=== PATIENT | female | born 1975 | race Caucasian/White ===

== ENCOUNTER → 2019-02-18 13:46 | Outpatient (BNVA) | payer MEDICAID, SELFPAY | PROVIDERS: Family Provider Family Medicine; PCP Family Medicine; Visit Provider Social Worker | DX: F43.12 Post-traumatic stress disorder, chronic (principal); F33.2 Major depressive disorder, recurrent severe without psychotic features; F41.1 Generalized anxiety disorder | CPT/HCPCS: 90834 ==

== ENCOUNTER → 2019-02-25 09:07 | Outpatient (BNVA) | payer MEDICAID, SELFPAY | PROVIDERS: Family Provider Family Medicine; PCP Family Medicine; Visit Provider Nurse Practitioner | DX: F33.1 Major depressive disorder, recurrent, moderate (principal); F41.1 Generalized anxiety disorder; F43.12 Post-traumatic stress disorder, chronic | CPT/HCPCS: 99214; 99215 ==

== ENCOUNTER → 2019-03-17 09:34 | Outpatient (BNVA) | payer OTHER, SELFPAY | PROVIDERS: Family Provider Family Medicine; PCP Family Medicine; Visit Provider Nurse Practitioner | DX: F43.12 Post-traumatic stress disorder, chronic (principal) | CPT/HCPCS: 80061; 83036 ==

== ENCOUNTER → 2019-03-18 08:47 | Outpatient (BNVA) | payer MEDICAID, SELFPAY | PROVIDERS: Family Provider Family Medicine; PCP Family Medicine; Visit Provider Social Worker | DX: F43.12 Post-traumatic stress disorder, chronic (principal); F33.2 Major depressive disorder, recurrent severe without psychotic features; F41.1 Generalized anxiety disorder | CPT/HCPCS: 90834 ==

== ENCOUNTER → 2019-04-01 08:51 | Outpatient (BNVA) | payer MEDICAID, SELFPAY | PROVIDERS: Family Provider Family Medicine; PCP Family Medicine; Visit Provider Social Worker | DX: F43.12 Post-traumatic stress disorder, chronic (principal); F33.2 Major depressive disorder, recurrent severe without psychotic features; F41.1 Generalized anxiety disorder | CPT/HCPCS: 90834 ==

== ENCOUNTER 2019-04-24 08:56 | Outpatient (CLI) | payer MEDICAID, SELFPAY ==
[2019-03-19 10:58] VITALS: BP 115/70; BMI 34.9
--- NOTE | 2019-04-24 09:30 | USCV_ITS ---
George Yun Age: 44 Gender: F : 1975 Exam Date: 04/24/2019 09:35 Ordering Phys: Shakira Vallejo DO Technologist: Mikael Leach [place] [facility] [place]: HISTORY: Edema. PROCEDURES: Right duplex Venous Insufficiency study of the Deep and Superficial systems was carried out according to normal protocol with the patient in supine positon for deep system and dependent position for the superficial system. FINDINGS: All deep veins demonstrated compressibility without evidence of intraluminal thrombus or increased echogenicity. Spectral analysis of Doppler signals demonstrates normal response to compression maneuvers indicating patency without obstruction. Reflux determinations were made with the patient in the dependent position, the weight being on the contralateral leg. Vein measurements and reflux times are listed below were applicable. SIGNIFICANT REFLUX IN THE RT GSAPH BELOW THE KNEE THE GSAPH HAS A SMALL DIAMETER CONCLUSIONS No evidence of DVT in the above-mentioned identifiable veins. Significant venous reflux of greater than 500 ms was noted at the below knee segment of the greater saphenous vein on the right side. The vein was relatively small caliber , greater than 1 cm deep from the surface. The venous dimensions, depth from the surface and the reflux time are as mentioned above Dr Dale Ross MD [facility] (Electronically Signed) Final Date: 27 April 2019 09:11 S
== END 2019-04-24 08:57 | disposition home or self-care (01) ==
LOC: US 09:00
PROVIDERS: Family Provider Family Medicine; PCP Family Medicine; Visit Provider Family Medicine
DX: I83.811 Varicose veins of right lower extremity with pain (principal); M79.604 Pain in right leg
CPT/HCPCS: 93971

== ENCOUNTER → 2019-04-29 09:32 | Outpatient (BNVA) | payer MEDICAID, SELFPAY | PROVIDERS: Family Provider Family Medicine; PCP Family Medicine; Visit Provider Family Medicine | DX: Z13.6 Encounter for screening for cardiovascular disorders (principal); Z86.39 Personal history of other endocrine, nutritional and metabolic disease | CPT/HCPCS: 80053; 82306; 85025 ==

== ENCOUNTER → 2019-05-13 07:36 | Outpatient (BNVA) | payer MEDICAID, SELFPAY | PROVIDERS: Family Provider Family Medicine; PCP Family Medicine; Visit Provider Nurse Practitioner | DX: F43.12 Post-traumatic stress disorder, chronic (principal); F41.1 Generalized anxiety disorder; F33.1 Major depressive disorder, recurrent, moderate | CPT/HCPCS: 99213 ==

== ENCOUNTER → 2019-05-20 13:47 | Outpatient (BNVA) | payer MEDICAID, SELFPAY | PROVIDERS: Family Provider Family Medicine; PCP Family Medicine; Visit Provider Social Worker | DX: F33.1 Major depressive disorder, recurrent, moderate (principal); F41.1 Generalized anxiety disorder; F43.12 Post-traumatic stress disorder, chronic | CPT/HCPCS: 90832 ==

== ENCOUNTER → 2019-06-25 09:21 | Outpatient (BNVA) | payer MEDICAID, SELFPAY ==
[2019-03-19 10:58] VITALS: BP 115/70; BMI 34.9
== END ==
PROVIDERS: Family Provider Family Medicine; Visit Provider Social Worker
DX: F41.1 Generalized anxiety disorder (principal); F33.1 Major depressive disorder, recurrent, moderate; F43.12 Post-traumatic stress disorder, chronic
CPT/HCPCS: 90834

== ENCOUNTER → 2019-07-15 08:05 | Outpatient (BNVA) | payer MEDICAID, SELFPAY ==
[2019-03-19 10:58] VITALS: BP 115/70; BMI 34.9
== END ==
PROVIDERS: Family Provider Family Medicine; Visit Provider Social Worker
DX: F43.12 Post-traumatic stress disorder, chronic (principal); F41.1 Generalized anxiety disorder; F33.1 Major depressive disorder, recurrent, moderate
CPT/HCPCS: 90834

== ENCOUNTER → 2019-07-21 08:56 | Outpatient (BNVA) | payer MEDICAID, SELFPAY ==
[2019-07-21 08:51] VITALS: BP 115/70; BMI 34.9
== END ==
PROVIDERS: Family Provider Family Medicine; Visit Provider Family Medicine
DX: E55.9 Vitamin D deficiency, unspecified (principal)
CPT/HCPCS: 82306

== ENCOUNTER → 2019-07-30 10:51 | Outpatient (BNVA) | payer MEDICAID, SELFPAY ==
[2019-07-21 08:51] VITALS: BP 115/70; BMI 34.9
== END ==
PROVIDERS: Family Provider Family Medicine; PCP Family Medicine; Visit Provider Internal Medicine Cardiovascular Disease
DX: I83.811 Varicose veins of right lower extremity with pain (principal)
CPT/HCPCS: 80048; 85025

== ENCOUNTER 2019-08-06 08:32 | Outpatient (CLI) | payer MEDICAID, SELFPAY ==
[2019-08-04 06:52] LABS: Quest SARS-CoV-2 RNA NOT DETECTED (NOT DETECTED)
[2019-08-04 08:14] VITALS: BP 115/70; BMI 34.9
[2019-08-06 09:18] VITALS: BP 113/64; PULSE 85; RESP 18; TEMP 36.9; O2SAT 99; BMI 34.5
--- NOTE | 2019-08-06 09:21 | SUR.PREOP ---
Patient prepped to procedure. Dr Neves in a Peripheral since 829. Patient aware of her [address] that [address] Neves is in a procedure at this time. She verb understanding. Call light given. Informed to call for needs.
--- NOTE | 2019-08-06 09:25 | SUR.PREOP ---
ALLERGY TO NOVOCAIN Discussed the allergy to Novocain with the patient. She is aware that the medications to be given today contains Lidocain. She tells me that novocain she cannot take, but she has received Lidocain in the past with no adverse reaction. Will discuss with Dr Neves once he arrives for today's procedure.
--- NOTE | 2019-08-06 10:39 | W.PM.OPSUD ---
Surgery/Procedure H&P Update DATE OF PROCEDURE: August 06, 2019 DATE H&P PERFORMED: 08/06/19 H&P UPDATE INFORMATION: I have examined patient prior to procedure and No changes to prior documentation PREOP DIAGNOSIS: Varicose vein with significant reflux, failed conservative management PLANNED PROCEDURE: Operation Date: 08/06/19 10:00 Proposed Procedures p Venous Ablations(Right) - Ajay Neves MD PATIENT REASSESSED PRIOR TO SEDATION, WITH NO CHANGE NOTED: Yes PHYSICAL EXAM: alert, oriented x 3, clear to auscultation bilaterally and regular rate & rhythm AIRWAY EVAL/ANESTHESIA PLAN: ASA II
--- NOTE | 2019-08-06 10:40 | PM.HP ---
Providers/Chief Complaint Primary Care Provider: Shakira Vallejo DO Chief Complaint: . History of Present Illness Yun Vazquez is a 44 year old female Reason for consultation: Symptomatic varicose vein and intolerant to Compression stockings.patient has tried and failed for more than 4 months. Patient has significant symptomatic varicose vein she reports fatigue swelling and difficulty in walking and cramps in the night. She has failed conservative management including leg raising compression stockings which she was somehow intolerant as well but tried for the last 4 months. Today she is here for right great saphenous vein ablation.. She underwent reflux study which showed more than 500 ms venous reflux, veins were small caliber and 1 cm deep no deep vein reflux of thromboses noted. Patient denies history of diabetes smoking but has history of prolonged sitting and standing hours and history of headache 3 problem with varicose veins. She thinks veins are bothering her too much she can walk much longer and she has cramps pain at rest as well. Medications/Allergies Home Medications Medication Instructions Recorded Confirmed Last Taken Type citalopram 40 mg tablet 40 mg PO DAILY #30 tab 02/25/19 08/06/19 08/05/19 20:00 Rx coenzyme Q10 10 mg capsule 10 mg PO DAILY cap 02/25/19 08/06/19 08/05/19 20:00 History erenumab-aooe 70 mg/mL 70 mg SUBCUT .monthly each 02/25/19 08/06/19 08/06/19 08:00 History subcutaneous auto-injector ginkgo biloba extract-Panax 1 cap PO DAILY cap 02/25/19 08/06/19 08/06/19 08:00 History ginseng root extract 60 mg-100 mg capsule magnesium oxide 500 mg capsule 500 mg PO BID 02/25/19 08/06/19 08/05/19 20:00 History milnacipran 100 mg tablet 100 mg PO BID 02/25/19 08/06/19 08/05/19 20:00 History tizanidine 4 mg capsule 12 mg PO DAILY cap 02/25/19 08/06/19 08/05/19 20:00 History topiramate 100 mg tablet 100 mg PO BID 02/25/19 08/06/19 08/05/19 20:00 History vitamin B complex 1 tab PO QAM 02/25/19 08/06/19 08/06/19 08:00 History amlodipine 5 mg tablet 5 mg PO .qpm tab 03/25/19 08/06/19 08/05/19 20:00 History comp.stocking,knee,long,medium #12 each 03/25/19 08/06/19 Unknown Rx dicyclomine 20 mg tablet 20 mg PO QID PRN tab 03/25/19 08/06/19 08/05/19 20:00 History prazosin 1 mg capsule 1 mg PO DAILY #30 cap 06/01/19 08/06/19 08/05/19 20:00 Rx naltrexone 50 mg tablet 12.5 mg PO DAILY tab 07/02/19 08/06/19 08/05/19 20:00 History rizatriptan 10 mg tablet 10 mg PO Q2H PRN 07/02/19 08/06/19 08/05/19 20:00 History ergocalciferol (vitamin D2) See Rx Instructions .ROUTE .COMPLEX 08/06/19 08/06/19 08/06/19 08:00 History [Vitamin D2] lactulose 20 g PO BID 08/06/19 08/06/19 08/05/19 20:00 History Allergies Allergy/AdvReac Type Severity Reaction Status Date / Time procaine [From Novocain] Allergy Unknown Unknown Verified 08/06/19 09:24 Bleach (Sodium Hypochlorite) Allergy Unknown Verified 08/06/19 08:59 cephalexin [From Keflex] Allergy Unknown Verified 08/06/19 08:59 gabapentin Allergy Unknown Verified 08/06/19 08:59 Penicillins Allergy Unknown Verified 08/06/19 08:59 PFSH Acute PFSH: Medical History Carpal tunnel syndrome Chronic migraine Fibromyalgia Foot drop, right foot Generalized anxiety disorder Major depressive disorder, recurrent, moderate Peripheral neuropathy Post-traumatic stress disorder, chronic Raynauds disease Tarsal tunnel syndrome Surgical History History of back surgery History of surgery on left wrist Hx of section Hx of cholecystectomy Hx of dilation and curettage Hx of hysterectomy Hx of laparoscopy Hx of right knee surgery Hx of shoulder surgery Hx of tonsillectomy Family History Father Hyperlipidemia Hypertension Cancer skin cancer Mother Hypertension Grandmother Hypertension Social History Smoking and tobacco status: never smoked Second hand smoke exposure: No Alcohol intake: current Alcohol intake frequency: holidays/special occasions only Desire information about alcohol rehabilitation?: No Counseling given: No Lives independently: Yes Marital status: Single Current gender identity: Female Vitals/I&O/Wt Last Vital Signs Temp 98.5 F 08/06/19 09:18 Pulse 85 08/06/19 09:18 Resp 18 08/06/19 09:18 BP 113/64 08/06/19 09:18 Pulse Ox 99 08/06/19 09:18 Weight last 48 hrs Weight 195 lb Physical Exam Narrative: EXAM NARRATIVE: GENERAL: Patient is alert, awake and oriented x3. NECK: No jugular vein distension. HEENT: No cyanosis. No icterus. No pallor. HEART: Regular S1 and S2. No murmur, rub or gallop. LUNGS: Clear to auscultate bilaterally. ABDOMEN: Soft, nontender and nondistended. Positive bowel sounds. No guarding, rebound or tenderness. CENTRAL NERVOUS SYSTEM: Grossly nonfocal. EXTREMITIES: Lower extremities with 1+ edema bilaterally. Obvious varicose vein of the right leg more prominent. Const: COMMON NORMALS: alert Resp: COMMON NORMALS: clear to auscultation bilaterally AUSCULTATION: clear to auscultation bilaterally Neuro: SENSORIUM/ORIENTATION: Yes alert A&P Assessment and plan (1) Varicose veins of lower extremity: Today patient is here for right great saphenous vein ablation. She has failed conservative management seep classification is C4a, patient has been explained all risk benefit alternative for the procedure. She has been explained the risk of developing venous thrombosis leading to pulmonary embolism . She has been explained in case of venous thrombosis extending beyond the saphenofemoral junction we may can start her on anticoagulation and in worse case scenario she may will be requiring IVC filter. Patient agrees to it and would like to proceed with it. Status: Acute Qualifiers: Varicose vein complication: pain Laterality: right Qualified Code(s): I83.811 - Varicose veins of right lower extremity with pain Attestations Medical Necessity Statement*: I am not expecting her stay to cross more than few hours. 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
--- NOTE | 2019-08-06 11:24 | P.PCN_ITS ---
Procedure Note: Date of procedure: 08/06/19 Pre-procedure diagnosis: Varicose vein symptomatic Procedure: The insufficient right great saphenous vein verified by ultrasound and diagrammed on the overlying skin. The varicose tributary veins and suitable access sites were identified and mapped. The affected area prepped and draped in the usual sterile fashion. The patient was placed in reverse Trendelenburg position. Tumescent was instilled in the skin overlying the access site for local anesthesia. The vein was accessed PROXIMAL, MID, DISTAL - THIGH/CALF using ultrasound guidance and the Seldinger technique, a guidewire was introduced through the needle, which was then exchanged over the guidewire for a 7F sheath. The RF catheter was placed on the sterile field, flushed and wiped down, prepared, and connected by a sterile cable. The patient was placed in Trendelenburg position. After RF catheter position was verified by ultrasound, tumescent anesthesia was infiltrated, under ultrasound guidance, precisely into the perivenous compartment along the entire length of vein. After the RF catheter position was again confirmed with ultrasound imaging, and under direct external compression along the length of the heating element, RF energy was applied. The vein was segmentally ablated until the treatment length is completed. Device temperature was maintained at 120 +/- degrees C with an initial power level of 40W dropping to below 20W for each treatment. Total vein length treated 47 cm. Vein diameter 1 cm. Total cycles of RF 10. Time 3 minutes and 20 seconds. Repeat ultrasound of the right great saphenous vein was performed, confirming successful treatment. The catheter and sheath were withdrawn and hemostasis established with direct pressure. After assuring hemostasis, the skin incision over the saphenous vein was closed with a bandage and graduated compression stocking was applied from the level of the foot to the most proximal length of the thigh. Tumescent used 300 mL Normal saline waste 225 mL Lidocaine waste 10 mL Estimated blood loss (mL): 2 Pathology: none sent Condition: stable Disposition: PACU Coding Level of Care Code Acute Biosolids Management Technician for Tylor Kramer
[2019-08-06 11:45] VITALS: BP 118/62; PULSE 85; RESP 17; TEMP 37.1; O2SAT 97
--- NOTE | 2019-08-06 12:29 | SUR.PHASEII ---
DISCHARGE NOTE Patient given verbal and written discharge instructions as ordered. See discharge plan. Discharged in stable condition. No pain reported. Encouraged to walk post procedure. New script given for new compression stocking as ordered by .
== END 2019-08-06 12:15 | disposition home or self-care (01) ==
PROVIDERS: Family Provider Family Medicine; PCP Family Medicine; Visit Provider Internal Medicine Cardiovascular Disease
DX: I83.811 Varicose veins of right lower extremity with pain (principal); M79.7 Fibromyalgia; F41.9 Anxiety disorder, unspecified
CPT/HCPCS: 12345; 36475; 87635; C1769; C1888; C1894; J2001; J7040; J7050

== ENCOUNTER → 2019-08-07 07:52 | Outpatient (BNVA) | payer MEDICAID, SELFPAY ==
[2019-08-04 08:14] VITALS: BP 115/70; BMI 34.9
== END ==
PROVIDERS: Family Provider Family Medicine; PCP Family Medicine; Visit Provider Nurse Practitioner
DX: F33.1 Major depressive disorder, recurrent, moderate (principal); F41.1 Generalized anxiety disorder; F43.12 Post-traumatic stress disorder, chronic
CPT/HCPCS: 99213

== ENCOUNTER 2019-08-13 08:45 | Outpatient (CLI) | payer MEDICAID, SELFPAY ==
[2019-08-04 08:14] VITALS: BP 115/70; BMI 34.9
--- NOTE | 2019-08-13 08:45 | USCV_ITS ---
Yun Vazquez Age: 44 Gender: F : 1975 Exam Date: 08/13/2019 08:58 Ordering Phys: Ajay Neves MD ([email or web address]) Technologist: Sun Mckeon Exam Location: [facility] – [place] Indication: POST ABLATION OF RT GSV HISTORY: Post Ablation of RT GSV PROCEDURES: Venous duplex imaging was performed in only the right lower extremity. The following venous structures were evaluated: common femoral vein, profunda vein, proximal portion of the greater saphenous vein, superficial femoral vein, and the popliteal vein. In addition, the posterior tibial and peroneal trunk were evaluated. Serial compression, augmentation maneuvers, and spectral Doppler flow evaluation were performed. FINDINGS: No DVT seen in any vessel examined Rt. GSV Ablation is successful. RT GSV is clotted CONCLUSIONS No evidence of DVT in the above-mentioned identifiable veins. The greater saphenous vein appears to be thrombosed Dr Dale Ross MD [facility] (Electronically Signed) Final Date: 13 August 2019 19:32 S
== END 2019-08-13 08:46 | disposition home or self-care (01) ==
LOC: RAD 08:46
PROVIDERS: PCP Family Medicine; Visit Provider Internal Medicine Cardiovascular Disease
DX: Z98.890 Other specified postprocedural states (principal)
CPT/HCPCS: 93971

== ENCOUNTER → 2019-09-17 13:54 | Outpatient (BNVA) | payer MEDICAID, SELFPAY ==
[2019-08-04 08:14] VITALS: BP 115/70; BMI 34.9
== END ==
PROVIDERS: PCP Family Medicine; Visit Provider Podiatrist Foot & Ankle Surgery
DX: L30.9 Dermatitis, unspecified (principal); L30.1 Dyshidrosis [pompholyx]; M79.671 Pain in right foot; M79.672 Pain in left foot
CPT/HCPCS: 73630

== ENCOUNTER → 2019-10-06 11:29 | Outpatient (BNVA) | payer MEDICAID, SELFPAY ==
[2019-08-04 08:14] VITALS: BP 115/70; BMI 34.9
== END ==
PROVIDERS: PCP Family Medicine; Visit Provider Internal Medicine
DX: J06.9 Acute upper respiratory infection, unspecified (principal)
CPT/HCPCS: 87635

== ENCOUNTER → 2019-11-16 08:51 | Outpatient (BNVA) | payer MEDICAID, SELFPAY ==
[2019-08-04 08:14] VITALS: BP 115/70; BMI 34.9
== END ==
PROVIDERS: PCP Family Medicine; Visit Provider Counselor Professional
DX: F33.1 Major depressive disorder, recurrent, moderate (principal); F43.12 Post-traumatic stress disorder, chronic; F41.1 Generalized anxiety disorder
CPT/HCPCS: 90834

== ENCOUNTER → 2019-11-18 07:34 | Outpatient (BNVA) | payer MEDICAID, SELFPAY ==
[2019-08-04 08:14] VITALS: BP 115/70; BMI 34.9
== END ==
PROVIDERS: PCP Family Medicine; Visit Provider Nurse Practitioner
DX: F33.1 Major depressive disorder, recurrent, moderate (principal); F41.1 Generalized anxiety disorder; F43.12 Post-traumatic stress disorder, chronic
CPT/HCPCS: 99213

== ENCOUNTER → 2019-11-25 08:52 | Outpatient (BNVA) | payer MEDICAID, SELFPAY ==
[2019-08-04 08:14] VITALS: BP 115/70; BMI 34.9
== END ==
PROVIDERS: PCP Family Medicine; Visit Provider Counselor Professional
DX: F33.1 Major depressive disorder, recurrent, moderate (principal); F43.12 Post-traumatic stress disorder, chronic; F41.1 Generalized anxiety disorder
CPT/HCPCS: 90834

== ENCOUNTER → 2019-12-08 09:06 | Outpatient (BNVA) | payer MEDICAID, SELFPAY ==
[2019-08-04 08:14] VITALS: BP 115/70; BMI 34.9
== END ==
PROVIDERS: PCP Family Medicine; Visit Provider Counselor Professional
DX: F43.12 Post-traumatic stress disorder, chronic (principal); F33.1 Major depressive disorder, recurrent, moderate; F41.1 Generalized anxiety disorder
CPT/HCPCS: 90834

== ENCOUNTER → 2019-12-22 08:29 | Outpatient (BNVA) | payer MEDICAID, SELFPAY ==
[2019-08-04 08:14] VITALS: BP 115/70; BMI 34.9
== END ==
PROVIDERS: PCP Family Medicine; Visit Provider Counselor Professional
DX: F33.1 Major depressive disorder, recurrent, moderate (principal); F41.1 Generalized anxiety disorder; F43.12 Post-traumatic stress disorder, chronic
CPT/HCPCS: 90834

== ENCOUNTER → 2020-01-12 08:22 | Outpatient (BNVA) | payer MEDICAID, SELFPAY ==
[2019-08-04 08:14] VITALS: BP 115/70; BMI 34.9
== END ==
PROVIDERS: PCP Family Medicine; Visit Provider Counselor Professional
DX: F41.1 Generalized anxiety disorder (principal); F43.12 Post-traumatic stress disorder, chronic; F33.1 Major depressive disorder, recurrent, moderate
CPT/HCPCS: 90834

== ENCOUNTER → 2020-01-13 07:38 | Outpatient (BNVA) | payer MEDICAID, SELFPAY ==
[2019-08-04 08:14] VITALS: BP 115/70; BMI 34.9
== END ==
PROVIDERS: PCP Family Medicine; Visit Provider Nurse Practitioner
DX: F41.1 Generalized anxiety disorder (principal); F43.12 Post-traumatic stress disorder, chronic; F33.1 Major depressive disorder, recurrent, moderate
CPT/HCPCS: 99213

== ENCOUNTER → 2020-01-27 08:22 | Outpatient (BNVA) | payer MEDICAID, SELFPAY ==
[2019-08-04 08:14] VITALS: BP 115/70; BMI 34.9
== END ==
PROVIDERS: PCP Family Medicine; Visit Provider Counselor Professional
DX: F41.1 Generalized anxiety disorder (principal); F43.12 Post-traumatic stress disorder, chronic; F33.1 Major depressive disorder, recurrent, moderate
CPT/HCPCS: 90834

== ENCOUNTER → 2020-02-09 08:58 | Outpatient (BNVA) | payer MEDICAID, SELFPAY ==
[2019-08-04 08:14] VITALS: BP 115/70; BMI 34.9
== END ==
PROVIDERS: Visit Provider Counselor Professional
DX: F41.1 Generalized anxiety disorder (principal); F43.12 Post-traumatic stress disorder, chronic; F33.1 Major depressive disorder, recurrent, moderate
CPT/HCPCS: 90834

== ENCOUNTER → 2020-02-29 08:26 | Outpatient (BNVA) | payer BC, SELFPAY ==
[2019-08-04 08:14] VITALS: BP 115/70; BMI 34.9
== END ==
PROVIDERS: Visit Provider Counselor Professional
DX: F41.1 Generalized anxiety disorder (principal); F43.12 Post-traumatic stress disorder, chronic; F33.1 Major depressive disorder, recurrent, moderate
CPT/HCPCS: 90834

== ENCOUNTER → 2020-03-16 09:08 | Outpatient (BNVA) | payer BC, SELFPAY ==
[2019-08-04 08:14] VITALS: BP 115/70; BMI 34.9
== END ==
PROVIDERS: Visit Provider Counselor Professional
DX: F41.1 Generalized anxiety disorder (principal); F43.12 Post-traumatic stress disorder, chronic; F33.1 Major depressive disorder, recurrent, moderate
CPT/HCPCS: 90834

== ENCOUNTER → 2020-04-05 08:36 | Outpatient (BNVA) | payer BC, SELFPAY ==
[2019-08-04 08:14] VITALS: BP 115/70; BMI 34.9
== END ==
PROVIDERS: Visit Provider Counselor Professional
DX: F41.1 Generalized anxiety disorder (principal); F43.12 Post-traumatic stress disorder, chronic; F33.1 Major depressive disorder, recurrent, moderate
CPT/HCPCS: 90834

== ENCOUNTER → 2020-04-11 14:22 | Outpatient (BNVA) | payer OTHER, SELFPAY ==
[2019-08-04 08:14] VITALS: BP 115/70; BMI 34.9
== END ==
PROVIDERS: Visit Provider Nurse Practitioner
DX: F41.1 Generalized anxiety disorder (principal)
CPT/HCPCS: 80061; 83036

== ENCOUNTER → 2020-04-12 08:06 | Outpatient (BNVA) | payer BC, SELFPAY ==
[2019-08-04 08:14] VITALS: BP 115/70; BMI 34.9
== END ==
PROVIDERS: Visit Provider Nurse Practitioner
DX: F33.1 Major depressive disorder, recurrent, moderate (principal); F41.1 Generalized anxiety disorder; F43.12 Post-traumatic stress disorder, chronic
CPT/HCPCS: 99214

== ENCOUNTER → 2020-04-26 08:12 | Outpatient (BNVA) | payer BC, SELFPAY ==
[2020-04-12 09:46] VITALS: BP 133/89; BMI 35.0
== END ==
PROVIDERS: Visit Provider Counselor Professional
DX: F41.1 Generalized anxiety disorder (principal); F43.12 Post-traumatic stress disorder, chronic; F33.1 Major depressive disorder, recurrent, moderate
CPT/HCPCS: 90834

== ENCOUNTER → 2020-05-17 08:33 | Outpatient (BNVA) | payer BC, SELFPAY ==
[2020-04-12 09:46] VITALS: BP 133/89; BMI 35.0
== END ==
PROVIDERS: Visit Provider Counselor Professional
DX: F41.1 Generalized anxiety disorder (principal); F43.12 Post-traumatic stress disorder, chronic; F33.1 Major depressive disorder, recurrent, moderate
CPT/HCPCS: 90834

== ENCOUNTER → 2020-06-07 08:20 | Outpatient (BNVA) | payer BC, SELFPAY ==
[2020-04-12 09:46] VITALS: BP 133/89; BMI 35.0
== END ==
PROVIDERS: Visit Provider Counselor Professional
DX: F41.1 Generalized anxiety disorder (principal); F43.12 Post-traumatic stress disorder, chronic; F33.1 Major depressive disorder, recurrent, moderate
CPT/HCPCS: 90832

== ENCOUNTER → 2020-06-28 07:42 | Outpatient (BNVA) | payer BC, SELFPAY ==
[2020-04-12 09:46] VITALS: BP 133/89; BMI 35.0
== END ==
PROVIDERS: PCP Family Medicine; Visit Provider Counselor Professional
DX: F41.1 Generalized anxiety disorder (principal); F33.1 Major depressive disorder, recurrent, moderate; F43.12 Post-traumatic stress disorder, chronic
CPT/HCPCS: 90834

== ENCOUNTER → 2020-07-12 12:49 | Outpatient (BNVA) | payer BC, SELFPAY ==
[2020-04-12 09:46] VITALS: BP 133/89; BMI 35.0
== END ==
PROVIDERS: PCP Family Medicine; Visit Provider Nurse Practitioner
DX: F33.1 Major depressive disorder, recurrent, moderate (principal); F41.1 Generalized anxiety disorder; F43.12 Post-traumatic stress disorder, chronic
CPT/HCPCS: 99214

== ENCOUNTER → 2020-07-27 09:49 | Outpatient (BNVA) | payer BC, SELFPAY ==
[2020-04-12 09:46] VITALS: BP 133/89; BMI 35.0
== END ==
PROVIDERS: PCP Family Medicine; Visit Provider Counselor Professional
DX: F41.1 Generalized anxiety disorder (principal); F33.1 Major depressive disorder, recurrent, moderate; F43.12 Post-traumatic stress disorder, chronic
CPT/HCPCS: 90834

== ENCOUNTER → 2020-08-10 09:42 | Outpatient (BNVA) | payer BC, SELFPAY ==
[2020-04-12 09:46] VITALS: BP 133/89; BMI 35.0
== END ==
PROVIDERS: PCP Family Medicine; Visit Provider Counselor Professional
DX: F41.1 Generalized anxiety disorder (principal); F33.1 Major depressive disorder, recurrent, moderate; F43.12 Post-traumatic stress disorder, chronic
CPT/HCPCS: 90834

== ENCOUNTER → 2020-08-30 11:41 | Outpatient (BNVA) | payer BC, SELFPAY ==
[2020-04-12 09:46] VITALS: BP 133/89; BMI 35.0
== END ==
PROVIDERS: PCP Family Medicine; Visit Provider Counselor Professional
DX: F41.1 Generalized anxiety disorder (principal); F33.1 Major depressive disorder, recurrent, moderate; F43.12 Post-traumatic stress disorder, chronic
CPT/HCPCS: 90834

== ENCOUNTER → 2020-09-20 11:42 | Outpatient (BNVA) | payer BC, SELFPAY ==
[2020-04-12 09:46] VITALS: BP 133/89; BMI 35.0
== END ==
PROVIDERS: PCP Family Medicine; Visit Provider Counselor Professional
DX: F41.1 Generalized anxiety disorder (principal); F33.1 Major depressive disorder, recurrent, moderate; F43.12 Post-traumatic stress disorder, chronic
CPT/HCPCS: 90834

== ENCOUNTER → 2020-10-11 10:47 | Outpatient (BNVA) | payer BC, SELFPAY ==
[2020-04-12 09:46] VITALS: BP 133/89; BMI 35.0
== END ==
PROVIDERS: PCP Family Medicine; Visit Provider Counselor Professional
DX: F41.1 Generalized anxiety disorder (principal); F33.1 Major depressive disorder, recurrent, moderate; F43.12 Post-traumatic stress disorder, chronic
CPT/HCPCS: 90834

== ENCOUNTER → 2020-10-12 10:48 | Outpatient (BNVA) | payer BC, SELFPAY ==
[2020-04-12 09:46] VITALS: BP 133/89; BMI 35.0
== END ==
PROVIDERS: PCP Family Medicine; Visit Provider Nurse Practitioner
DX: F33.1 Major depressive disorder, recurrent, moderate (principal); F41.1 Generalized anxiety disorder; F43.12 Post-traumatic stress disorder, chronic
CPT/HCPCS: 99214

== ENCOUNTER → 2020-11-01 11:00 | Outpatient (BNVA) | payer BC, SELFPAY ==
[2020-04-12 09:46] VITALS: BP 133/89; BMI 35.0
== END ==
PROVIDERS: PCP Family Medicine; Visit Provider Counselor Professional
DX: F43.12 Post-traumatic stress disorder, chronic (principal); F41.1 Generalized anxiety disorder; F33.1 Major depressive disorder, recurrent, moderate
CPT/HCPCS: 90834

== ENCOUNTER → 2020-11-16 09:03 | Outpatient (BNVA) | payer BC, SELFPAY ==
[2020-04-12 09:46] VITALS: BP 133/89; BMI 35.0
== END ==
PROVIDERS: PCP Family Medicine; Visit Provider Counselor Professional
DX: F43.12 Post-traumatic stress disorder, chronic (principal); F41.1 Generalized anxiety disorder; F33.1 Major depressive disorder, recurrent, moderate
CPT/HCPCS: 90834

== ENCOUNTER → 2020-12-06 08:52 | Outpatient (BNVA) | payer BC, SELFPAY ==
[2020-04-12 09:46] VITALS: BP 133/89; BMI 35.0
== END ==
PROVIDERS: PCP Family Medicine; Visit Provider Counselor Professional
DX: F43.12 Post-traumatic stress disorder, chronic (principal); F41.1 Generalized anxiety disorder; F33.1 Major depressive disorder, recurrent, moderate
CPT/HCPCS: 90834

== ENCOUNTER → 2020-12-20 09:50 | Outpatient (BNVA) | payer BC, SELFPAY ==
[2020-04-12 09:46] VITALS: BP 133/89; BMI 35.0
== END ==
PROVIDERS: PCP Family Medicine; Visit Provider Counselor Professional
DX: F43.12 Post-traumatic stress disorder, chronic (principal); F41.1 Generalized anxiety disorder; F33.1 Major depressive disorder, recurrent, moderate
CPT/HCPCS: 90834

== ENCOUNTER → 2021-01-11 10:46 | Outpatient (BNVA) | payer BC, SELFPAY ==
[2020-04-12 09:46] VITALS: BP 133/89; BMI 35.0
== END ==
PROVIDERS: PCP Family Medicine; Visit Provider Nurse Practitioner
DX: F33.1 Major depressive disorder, recurrent, moderate (principal); F41.1 Generalized anxiety disorder; F43.12 Post-traumatic stress disorder, chronic
CPT/HCPCS: 99214

== ENCOUNTER → 2021-01-17 09:50 | Outpatient (BNVA) | payer BC, SELFPAY ==
[2020-04-12 09:46] VITALS: BP 133/89; BMI 35.0
== END ==
PROVIDERS: PCP Family Medicine; Visit Provider Counselor Professional
DX: F43.12 Post-traumatic stress disorder, chronic (principal); F41.1 Generalized anxiety disorder; F33.1 Major depressive disorder, recurrent, moderate
CPT/HCPCS: 90834

== ENCOUNTER → 2021-02-07 08:47 | Outpatient (BNVA) | payer BC, SELFPAY ==
[2020-04-12 09:46] VITALS: BP 133/89; BMI 35.0
== END ==
PROVIDERS: PCP Family Medicine; Visit Provider Counselor Professional
DX: F43.12 Post-traumatic stress disorder, chronic (principal); F41.1 Generalized anxiety disorder; F33.1 Major depressive disorder, recurrent, moderate
CPT/HCPCS: 90834

== ENCOUNTER → 2021-02-20 08:50 | Outpatient (BNVA) | payer BC, OTHER, SELFPAY ==
[2020-04-12 09:46] VITALS: BP 133/89; BMI 35.0
== END ==
PROVIDERS: PCP Family Medicine; Visit Provider Counselor Professional
DX: F43.12 Post-traumatic stress disorder, chronic (principal); F41.1 Generalized anxiety disorder; F33.1 Major depressive disorder, recurrent, moderate
CPT/HCPCS: 90834

== ENCOUNTER → 2021-03-06 10:57 | Outpatient (BNVA) | payer BC, SELFPAY ==
[2020-04-12 09:46] VITALS: BP 133/89; BMI 35.0
== END ==
PROVIDERS: PCP Family Medicine; Visit Provider Counselor Professional
DX: F43.12 Post-traumatic stress disorder, chronic (principal); F41.1 Generalized anxiety disorder; F33.1 Major depressive disorder, recurrent, moderate
CPT/HCPCS: 90834

== ENCOUNTER → 2021-03-21 10:50 | Outpatient (BNVA) | payer BC, SELFPAY ==
[2020-04-12 09:46] VITALS: BP 133/89; BMI 35.0
== END ==
PROVIDERS: PCP Family Medicine; Visit Provider Counselor Professional
DX: F43.12 Post-traumatic stress disorder, chronic (principal); F41.1 Generalized anxiety disorder; F33.1 Major depressive disorder, recurrent, moderate
CPT/HCPCS: 90834

== ENCOUNTER → 2021-04-11 10:47 | Outpatient (BNVA) | payer BC, OTHER, SELFPAY ==
[2020-04-12 09:46] VITALS: BP 133/89; BMI 35.0
== END ==
PROVIDERS: PCP Family Medicine; Visit Provider Nurse Practitioner
DX: F33.1 Major depressive disorder, recurrent, moderate (principal); F41.1 Generalized anxiety disorder; F43.12 Post-traumatic stress disorder, chronic
CPT/HCPCS: 99214

== ENCOUNTER → 2021-04-18 10:58 | Outpatient (BNVA) | payer BC, SELFPAY ==
[2020-04-12 09:46] VITALS: BP 133/89; BMI 35.0
== END ==
PROVIDERS: PCP Family Medicine; Visit Provider Counselor Professional
DX: F43.12 Post-traumatic stress disorder, chronic (principal); F41.1 Generalized anxiety disorder; F33.1 Major depressive disorder, recurrent, moderate
CPT/HCPCS: 90834

== ENCOUNTER → 2021-05-04 10:59 | Outpatient (BNVA) | payer BC, SELFPAY ==
[2020-04-12 09:46] VITALS: BP 133/89; BMI 35.0
== END ==
PROVIDERS: PCP Family Medicine; Visit Provider Counselor Professional
DX: F43.12 Post-traumatic stress disorder, chronic (principal); F41.1 Generalized anxiety disorder; F33.1 Major depressive disorder, recurrent, moderate
CPT/HCPCS: 90834

== ENCOUNTER → 2021-05-17 12:50 | Outpatient (BNVA) | payer BC, SELFPAY ==
[2020-04-12 09:46] VITALS: BP 133/89; BMI 35.0
== END ==
PROVIDERS: PCP Family Medicine; Visit Provider Counselor Professional
DX: F43.12 Post-traumatic stress disorder, chronic (principal); F41.1 Generalized anxiety disorder; F33.1 Major depressive disorder, recurrent, moderate
CPT/HCPCS: 90832; 90834

== ENCOUNTER → 2021-05-31 09:59 | Outpatient (BNVA) | payer BC, SELFPAY ==
[2020-04-12 09:46] VITALS: BP 133/89; BMI 35.0
== END ==
PROVIDERS: PCP Family Medicine; Visit Provider Counselor Professional
DX: F43.12 Post-traumatic stress disorder, chronic (principal); F33.1 Major depressive disorder, recurrent, moderate; F41.1 Generalized anxiety disorder
CPT/HCPCS: 90834

== ENCOUNTER → 2021-06-13 10:42 | Outpatient (BNVA) | payer BC, SELFPAY ==
[2020-04-12 09:46] VITALS: BP 133/89; BMI 35.0
== END ==
PROVIDERS: PCP Family Medicine; Visit Provider Nurse Practitioner
DX: F33.1 Major depressive disorder, recurrent, moderate (principal); F41.1 Generalized anxiety disorder; F43.12 Post-traumatic stress disorder, chronic
CPT/HCPCS: 99214

== ENCOUNTER 2021-07-11 16:29 | Emergency (ER) | payer BC, MEDICAID, SELFPAY ==
[2020-04-12 09:46] VITALS: BP 133/89; BMI 35.0
[2021-07-11 16:53] VITALS: BP 136/82; PULSE 83; RESP 18; TEMP 36.8; O2SAT 99; BMI 33.6
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
[2021-07-11 17:17] VITALS: BP 148/72; PULSE 68; RESP 18; TEMP 36.4; O2SAT 96
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
[2021-07-11] MEDS: ketorolac 30 mg/mL INJ IM (17:50)
[2021-07-11] MEDS: acetaminophen 500 mg Tablet PO (17:50)
[2021-07-11 18:27] VITALS: BP 133/64; PULSE 68; RESP 18; TEMP 36.6; O2SAT 100
== END 2021-07-11 18:46 | disposition home or self-care (01) ==
PROVIDERS: Emergency Provider Emergency Medicine; PCP Family Medicine
DX: M54.2 Cervicalgia (principal); M79.604 Pain in right leg; V43.52XA Car driver injured in collision with other type car in traffic accident, initial encounter
CPT/HCPCS: 73590; 96372; 99283; J1885

== ENCOUNTER → 2021-07-27 09:47 | Outpatient (BNVA) | payer BC, SELFPAY ==
[2020-04-12 09:46] VITALS: BP 133/89; BMI 35.0
== END ==
PROVIDERS: PCP Family Medicine; Visit Provider Counselor Professional
DX: F43.12 Post-traumatic stress disorder, chronic (principal); F41.1 Generalized anxiety disorder; F33.1 Major depressive disorder, recurrent, moderate
CPT/HCPCS: 90834

== ENCOUNTER → 2021-08-08 08:02 | Outpatient (BNVA) | payer BC, SELFPAY ==
[2020-04-12 09:46] VITALS: BP 133/89; BMI 35.0
== END ==
PROVIDERS: PCP Family Medicine; Visit Provider Counselor Professional
DX: F43.12 Post-traumatic stress disorder, chronic (principal); F41.1 Generalized anxiety disorder; F33.1 Major depressive disorder, recurrent, moderate
CPT/HCPCS: 90834

== ENCOUNTER 2022-09-18 13:49 | Outpatient (CLI) | payer MEDICARE, BC, SELFPAY ==
[2020-04-12 09:46] VITALS: BP 133/89; BMI 35.0
--- NOTE | 2022-09-18 13:57 | MM_ITS ---
WS: [id number] BILATERAL 3D TOMOSYNTHESIS DIGITAL DIAGNOSTIC MAMMOGRAPHY WITH CAD CLINICAL INFORMATION: CINDY BREAST PAIN HISTORY: Bilateral breast pain and lumps COMPARISON: 2018 TECHNIQUE: Bilateral CC, MLO, and ML views. FINDINGS: Scattered fibroglandular densities bilaterally. Breast parenchyma is similar to 2 14,018. Few inciden walt punctate calcifications. Bilateral palpable markers with no definite suspicious underlying parenc hymal abnormalities in these areas. Ultrasound is pending. ULTRASOUND BREAST BILATERAL TECHNIQUE: Ultrasound bilateral breast focused area of concern. CLINICAL INFORMATION: CINDY BREAST PAIN FINDINGS: Bilateral whole breast ultrasound with attention to the areas of concern. No underlying cys tic or solid lesions. Normal underlying parenchymal tissue. No suspicious lesions to target for biops y. Recommend return to annual screening mammography. IMPRESSION: MM/[place] [id number] BI-RADS: 2-Benign FOLLOW UP: 1 Year Follow-up Recommend return to annual screening mammography.
--- NOTE | 2022-09-18 14:50 | US_ITS ---
WS: [id number] BILATERAL 3D TOMOSYNTHESIS DIGITAL DIAGNOSTIC MAMMOGRAPHY WITH CAD CLINICAL INFORMATION: CINDY BREAST PAIN HISTORY: Bilateral breast pain and lumps COMPARISON: 2018 TECHNIQUE: Bilateral CC, MLO, and ML views. FINDINGS: Scattered fibroglandular densities bilaterally. Breast parenchyma is similar to 2 14,018. Few inciden walt punctate calcifications. Bilateral palpable markers with no definite suspicious underlying parenc hymal abnormalities in these areas. Ultrasound is pending. ULTRASOUND BREAST BILATERAL TECHNIQUE: Ultrasound bilateral breast focused area of concern. CLINICAL INFORMATION: CINDY BREAST PAIN FINDINGS: Bilateral whole breast ultrasound with attention to the areas of concern. No underlying cys tic or solid lesions. Normal underlying parenchymal tissue. No suspicious lesions to target for biops y. Recommend return to annual screening mammography. IMPRESSION: US/US breast BI complete [id number] BI-RADS: 2-Benign FOLLOW UP: 1 Year Follow-up Recommend return to annual screening mammography.
== END 2022-09-18 13:50 | disposition home or self-care (01) ==
LOC: RAD 13:55
PROVIDERS: PCP Family Medicine; Visit Provider Nurse Practitioner Family
DX: N64.4 Mastodynia (principal)
CPT/HCPCS: 76641; 77062; G0279